=== PATIENT | male | born 1950 | race Caucasian/White ===

== ENCOUNTER → 2023-09-13 11:22 | Outpatient (REF) | payer OTHER, SELFPAY | LOC: RAD 11:22 | PROVIDERS: ATTENDING PHYSICIAN Orthopaedic Surgery | DX: S05.50XA Penetrating wound with foreign body of unspecified eyeball, initial encounter (principal) | CPT/HCPCS: 70030 ==

== ENCOUNTER → 2024-04-23 08:36 | Outpatient (REF) | payer OTHER, SELFPAY | LOC: REG 08:36 | PROVIDERS: ATTENDING PHYSICIAN Nurse Practitioner | DX: Z00.01 Encounter for general adult medical examination with abnormal findings (principal); M89.8X1 Other specified disorders of bone, shoulder | CPT/HCPCS: 73000 ==

== ENCOUNTER 2024-09-12 06:35 | Day surgery (SDC) | payer OTHER, SELFPAY | END 2024-09-12 12:57 | disposition home or self-care (01) | LOC: GI 06:35 | PROVIDERS: ATTENDING PHYSICIAN Internal Medicine Gastroenterology | DX: Z12.11 Encounter for screening for malignant neoplasm of colon (principal); K57.30 Diverticulosis of large intestine without perforation or abscess without bleeding; K64.0 First degree hemorrhoids; D12.0 Benign neoplasm of cecum; D12.3 Benign neoplasm of transverse colon; K63.5 Polyp of colon; K62.1 Rectal polyp; Z86.0100 Personal history of colon polyps, unspecified | CPT/HCPCS: 45385; 45380; 88305 ==